=== PATIENT | male | born 1940 | race Caucasian/White ===

== ENCOUNTER 2016-04-18 09:37 | Emergency (ER) | payer OTHER, BC ==
[~2016-04-18] VITALS: Ht 182.9 cm; Wt 74.5 kg
[~2016-04-18 09:37] MED LIST: AZITHROMYCIN500 M1 PO; CALCITRIOL0.25 MCG PO; CARVEDILOL3.125 MG PO; CENTRUM SILVER1 EAC3 PO; CYCLOBENZAPRINE5 MG PO; ELIQUIS5 MG PO; FLONASE16 G1 BOTH NARES; FOLIC ACID0.4 MG PO; FUROSEMIDE40 MG PO; GLIMEPIRIDE1 MG PO; GLIMEPIRIDE2 MG PO; K-DUR20 MEQ PO; LASIX80 MG PO; LISINOPRIL2.5 MG PO; METFORMIN HCL500 M1 PO; METFORMIN HCL500 MG PO; PERCOCET 5/31 TABLET PO; PRAVACHOL40 MG PO; PRILOSEC OTC20 MG PO; PRILOSEC20 MG PO; RAMIPRIL1.25 MG PO; TANZEUM30 MG/0.5 SC; TRADJENTA5 MG PO; ZYRTEC10 M2 PO
[2016-04-18 10:38] LABS: HEMATOCRIT 32.9 % (38.0-50.0); MCH 31.5 PG (29.0-34.0); MCHC 34.3 G/DL (30.0-36.0); MCV 91.6 FL (86-99); MEAN PLAT.VOLUME 10.1 uM^3 (9.0-12.4); PLATELET COUNT 162 K/uL (156-360); RBC DIS.WIDTH-CV 15.4 % (11.8-14.6); RBC DIS.WIDTH-SD 48.7 % (39-53); RED BLOOD COUNT 3.59 M/uL (4.00-5.50); WHITE BLOOD COUNT 6.7 K/uL (4.1-10.2)
[2016-04-18 10:55] LABS: INTER. NORMALIZED RATIO 1.3; PROTHROMBIN TIME 13.4 (9.2-11.2); PTT 31.7 (25-32)
[2016-04-18 10:56] LABS: CHLORIDE 95 mEq/L (99-109); POTASSIUM 3.2 mEq/L (3.7-5.4); SODIUM 132 mEq/L (136-147)
[2016-04-18 10:57] LABS: GLUCOSE 122 mg/dL (70-99)
[2016-04-18 10:59] LABS: ANION GAP 12 MEQ/L (2-14)
[2016-04-18 11:01] LABS: GFR ESTIMATE (CALCULATED) 57 mL/min/
[2016-04-18 11:02] LABS: UREA NITROGEN (BUN) 25 mg/dL (9-23)
[2016-04-18 11:03] LABS: TROP-I INTERPRETATION NEGATIVE; TROPONIN-I 0.02 ng/mL (0.0-0.30)
[2016-04-18 11:21] LABS: EOSINOPHIL (%) 0.5 % (0-5); HEMATOLOGY COMMENT 1 SMEAR COMPATIBLE; IMMATURE GRANULOCYTE (%) 0.3 % (0.0-0.7); IMMATURE GRANULOCYTE COUNT 0.2 K/uL; MONOCYTE (%) 18.3 % (3-12); MONOCYTE COUNT 1.2 K/uL (0-0.8); NEUTROPHIL COUNT 4.3 K/uL (1.8-6.4); PLAT.SUFFICIENCY ADEQUATE; USER ID TLW
[2016-04-18] MEDS ORDERED: TAMIFLU75 MG PO (12:19)
[2016-04-18] MEDS ORDERED: PROAIR HFA8.5 GM IH (12:19)
[2016-04-18] MEDS ORDERED: ZITHROMAX Z-PA250 MG PO (12:19)
[2016-04-18 12:38] VITALS: BP 126/80
== END 2016-04-18 12:48 | disposition home or self-care (01) ==
LOC: EME 09:37
PROVIDERS: Emergency Medicine
DX: J10.1 Influenza due to other identified influenza virus with other respiratory manifestations (principal); J40 Bronchitis, not specified as acute or chronic; I50.9 Heart failure, unspecified; E11.9 Type 2 diabetes mellitus without complications; E78.5 Hyperlipidemia, unspecified; I11.0 Hypertensive heart disease with heart failure; I25.2 Old myocardial infarction; N19 Unspecified kidney failure; Z95.1 Presence of aortocoronary bypass graft; Z95.0 Presence of cardiac pacemaker; Z87.891 Personal history of nicotine dependence
CPT/HCPCS: 71010; 80048; 83880; 84484; 85025; 85610; 85730; 93005; 94640; 99281; 99284

== ENCOUNTER 2016-06-07 17:29 | Emergency (ER) | payer OTHER, BC ==
[~2016-06-07] VITALS: Ht 182.9 cm; Wt 71.5 kg
[~2016-06-07 17:29] MED LIST changes: +PROAIR HFA8.5 GM IH; +TAMIFLU75 MG PO; +ZITHROMAX Z-PA250 MG PO
[2016-06-07 18:36] LABS: HEMATOCRIT 36.2 % (38.0-50.0); MCH 31.2 PG (29.0-34.0); MCHC 32.3 G/DL (30.0-36.0); MCV 96.5 FL (86-99); MEAN PLAT.VOLUME 10.5 uM^3 (9.0-12.4); PLATELET COUNT 192 K/uL (156-360); RBC DIS.WIDTH-CV 16.1 % (11.8-14.6); RED BLOOD COUNT 3.75 M/uL (4.00-5.50); WHITE BLOOD COUNT 9.7 K/uL (4.1-10.2)
[2016-06-07 18:45] LABS: CHLORIDE 96 mEq/L (99-109); POTASSIUM 4.7 mEq/L (3.7-5.4); SODIUM 129 mEq/L (136-147)
[2016-06-07 18:46] LABS: GLUCOSE 116 mg/dL (70-99)
[2016-06-07 18:48] LABS: ANION GAP 12 MEQ/L (2-14)
[2016-06-07 18:50] LABS: GFR ESTIMATE (CALCULATED) 57 mL/min/
[2016-06-07 18:51] LABS: UREA NITROGEN (BUN) 47 mg/dL (9-23)
[2016-06-07 18:58] LABS: D-DIMER ELISA > 4.00 mg/L FEU (< 0.57)
[2016-06-07 20:31] LABS: TROP-I INTERPRETATION NEGATIVE; TROPONIN-I < 0.01 ng/mL (0.0-0.30)
[2016-06-07] MEDS ORDERED: PERCOCET 5/31 TABLET PO (21:36)
[2016-06-08 00:01] VITALS: BP 113/78
== END 2016-06-08 00:02 | disposition home or self-care (01) ==
LOC: EME 17:29
PROVIDERS: Emergency Medicine
DX: S20.211A Contusion of right front wall of thorax, initial encounter (principal); W18.30XA Fall on same level, unspecified, initial encounter; E11.9 Type 2 diabetes mellitus without complications; E78.5 Hyperlipidemia, unspecified; I10 Essential (primary) hypertension; I25.2 Old myocardial infarction; K21.9 Gastro-esophageal reflux disease without esophagitis; Z95.1 Presence of aortocoronary bypass graft; Z95.0 Presence of cardiac pacemaker; Z79.84 Long term (current) use of oral hypoglycemic drugs; Z87.891 Personal history of nicotine dependence
CPT/HCPCS: 71020; 71275; 80048; 84484; 85027; 85379; 93005; 99281; 99285; J2270; J2405; J3010